=== PATIENT | female | born 1985 | race Caucasian/White ===

== ENCOUNTER 2016-09-14 13:06 | Emergency (ER) | payer MEDICAID ==
[~2016-09-14] VITALS: Ht 162.6 cm; Wt 87.8 kg
[2016-09-14 13:10] VITALS: BP 144/83; TEMP 98.1
[2016-09-14 14:28] LABS: BASO # 0.1 (0.0-0.2); BASO % 0.9 % (0.0-2.0); EOS # 0.6 (0.0-0.7); EOS % 4.7 % (0-4.0); GRAN # 7.5 (1.4-6.5); GRAN % 62.6 % (42.2-75.2); HEMOGLOBIN 14.6 g/dl (12.5-16.0); LYMPH # 3.3 (1.2-3.4); LYMPH % 27.8 % (20.0-51.0); MEAN CELL VOLUME 87 fl (80.0-100.0); MEAN CORPUSCULAR HEMOGLOBIN 31 pg (27.0-31.0); MEAN CORPUSCULAR HGB CONC 36 g/dl (33.0-37.0); MEAN PLATELET VOLUME 10.7 fl (7.4-10.4); MONO # 0.4 (0.1-0.6); MONO % 3.7 % (1.7-9.3); PLATELET COUNT 224 K/mm3 (130-400); RED BLOOD COUNT 4.69 M/mm3 (4.10-5.30); REDCELL DISTRIBUTION WIDTH-CV 12.3 % (11.5-14.5); WHITE BLOOD COUNT 11.9 K/mm3 (4.8-10.8)
[2016-09-14 14:33] LABS: ADJUSTED CALCIUM 9.1 mg/dL (8.4-10.2); ALBUMIN 3.8 gm/dL (3.5-5.0); BILIRUBIN,TOTAL 0.7 mg/dL (0.0-1.0); CALCIUM 8.9 mg/dL (8.4-10.2); CREATININE, serum 0.55 mg/dL (0.52-1.25); POTASSIUM 4.1 mmol/L (3.4-5.0); TOTAL PROTEIN 6.8 gm/dL (6.4-8.2)
[2016-09-14] MEDS ORDERED: LEVEMIR FLEX100 U/ML SQ (14:34)
[2016-09-14] MEDS ORDERED: PRINIVIL10 MG PO (14:39)
[2016-09-14] MEDS ORDERED: NOVOLOG FLEX100 U/ML SQ (14:39)
[2016-09-14 15:10] VITALS: PULSE 87
== END 2016-09-14 15:10 | disposition home or self-care (01) ==
LOC: COL.ER 13:06
PROVIDERS: Family Medicine
DX: E11.65 Type 2 diabetes mellitus with hyperglycemia (principal); Z79.4 Long term (current) use of insulin; I10 Essential (primary) hypertension; F32.9 Major depressive disorder, single episode, unspecified; Z76.0 Encounter for issue of repeat prescription; T38.3X6A Underdosing of insulin and oral hypoglycemic [antidiabetic] drugs, initial encounter; Z91.138 Patient's unintentional underdosing of medication regimen for other reason; Z87.891 Personal history of nicotine dependence
CPT/HCPCS: J7030